=== PATIENT | male | born 1985 | race African-American/Black ===

== ENCOUNTER 2017-07-01 08:37 | Emergency (ER) | payer SELFPAY ==
[~2017-07-01] VITALS: Ht 160 cm; Wt 77.0 kg
[2017-07-01] MEDS ORDERED: ACETAMINOPHEN 325MG TABLET PO ONE (11:00)
[2017-07-01] MEDS ORDERED: AMOXICILLIN 500 MG CAPSULE PO ONE (11:00)
[2017-07-01 11:17] VITALS: BP 140/90
== END 2017-07-01 11:20 | disposition home or self-care (01) ==
LOC: ER 10:16
DX: K04.7 Periapical abscess without sinus (principal); K02.9 Dental caries, unspecified; R68.84 Jaw pain
CPT/HCPCS: 99283